=== PATIENT | female | born 1985 | race Two or more races ===

== ENCOUNTER 2016-09-15 00:32 | Emergency (ER) | payer BC, OTHER ==
[~2016-09-15] VITALS: Ht 167.6 cm; Wt 72.6 kg
[2016-09-15 00:32] VITALS: BP 129/68
[2016-09-15] MEDS ORDERED: ONDANSETRON 4 MG TAB.RAPDIS ONE (00:56)
[2016-09-15] MEDS ORDERED: HYDROCODONE/APAP 10/325MG 1 EA TABLET ONE (00:57)
[2016-09-15] MEDS ORDERED: HYDROCODONE/APAP 10/325MG 1 EA TABLET PO ONE (01:00)
[2016-09-15] MEDS ORDERED: ONDANSETRON 4 MG TAB.RAPDIS SL ONE (01:00)
== END 2016-09-15 01:47 | disposition home or self-care (01) ==
LOC: ER 00:36
DX: O03.9 Complete or unspecified spontaneous abortion without complication (principal)
CPT/HCPCS: 99283; A4606; Q0162; Z7610

== ENCOUNTER 2019-06-02 23:14 | Emergency (ER) | payer BC ==
[~2019-06-02] VITALS: Ht 172.7 cm; Wt 86.2 kg
--- NOTE | 2019-06-02 23:36 | NUR ---
PT BIB . AAOX4. AMBULATORY. C/O SORE THROAT X2 DAYS, COUGHT X1 DAY. PT ABLE TO SPEAK IN FULL SENTENCES. UPON ASSESSMENT PT NOTED TO FEEL DISCOMFORT. PER PATIENT "I CAN'T SWALLOW." PT BREATHING EVEN AND UNLABORED. VSS. PT PLACED ON MONITOR AND PULSE OX. NO ACUTE DISTRESS NOTED. AWAITING MD ORDERS.
--- NOTE | 2019-06-03 00:07 | NUR ---
RADIOLOGY AT BEDSIDE FOR XRAY
[2019-06-03] MEDS ORDERED: DEXAMETHASONE SOD PHOSPHATE 10 MG/ML VIAL ONE (01:46)
[2019-06-03 01:52] VITALS: BP 128/84
--- NOTE | 2019-06-03 01:52 | NUR ---
Patient discharged to home in stable condition. Written and verbal after care instructions given. Patient verbalizes understanding of instruction. PT ambulatory with a steady gait.
[2019-06-03] MEDS ORDERED: DEXAMETHASONE SOD PHOSPHATE 10 MG/ML VIAL IV ONE (02:00)
== END 2019-06-03 01:53 | disposition home or self-care (01) ==
LOC: ER 23:16
DX: J02.8 Acute pharyngitis due to other specified organisms (principal)
CPT/HCPCS: 70360; 96374; 99283; J1100